=== PATIENT | female | born 1965 | race Caucasian/White ===

== ENCOUNTER 2018-11-20 17:52 | Emergency (ER) | payer MEDICAID ==
[~2018-11-20] VITALS: Ht 152.4 cm; Wt 63.5 kg
[2018-11-20 22:52] VITALS: BP 141/81
== END 2018-11-20 22:56 | disposition home or self-care (01) ==
LOC: ED 20:47
DX: D50.0 Iron deficiency anemia secondary to blood loss (chronic) (principal); Z87.891 Personal history of nicotine dependence
CPT/HCPCS: 36415; 80053; 84484; 85025; 85610; 85730; 86850; 86900; 86923; 93005; 99284; P9016